=== PATIENT | female | born 1990 | race African-American/Black ===

== ENCOUNTER 2016-11-09 11:55 | Emergency (ER) | payer OTHER ==
[~2016-11-09 11:55] MED LIST: BACI28.4 TP
[2016-11-09 11:57] VITALS: BP 124/83; PULSE 80; RESP 20
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
[2016-11-09 12:15] VITALS: BP 138/80; PULSE 62; RESP 11; O2SAT 100
[2016-11-09] MEDS ORDERED: ASPI-973 PO (12:19)
[2016-11-09] MEDS ORDERED: MULT1CAP33 PO (12:19)
[2016-11-09 15:42] VITALS: BP 117/76; PULSE 78; RESP 16
== END 2016-11-09 15:43 | disposition home or self-care (01) ==
LOC: EDUNIT# 11:55 → EDBD 11:55 → SED 11:55
DX: F15.20 Other stimulant dependence, uncomplicated (principal); R51 Headache; W50.0XXA Accidental hit or strike by another person, initial encounter; Y92.241 Library as the place of occurrence of the external cause; Y93.9 Activity, unspecified; Y99.8 Other external cause status; B20 Human immunodeficiency virus [HIV] disease; E11.9 Type 2 diabetes mellitus without complications; F17.200 Nicotine dependence, unspecified, uncomplicated; Z86.19 Personal history of other infectious and parasitic diseases; Y92.9 Unspecified place or not applicable; Z79.82 Long term (current) use of aspirin

== ENCOUNTER 2016-11-14 12:43 | Emergency (ER) | payer OTHER ==
[~2016-11-14 12:43] MED LIST changes: +ASPI-973 PO; -BACI28.4 TP; +MULT1CAP33 PO
[2016-11-14 13:03] VITALS: BP 115/77; PULSE 87; RESP 16; O2SAT 100
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
[2016-11-14 15:52] VITALS: BP 102/65; PULSE 76; RESP 12; O2SAT 98
== END 2016-11-14 16:04 | disposition home or self-care (01) ==
LOC: EDUNIT# 12:43 → EDBD 12:43 → SED 12:43
DX: T40.601A Poisoning by unspecified narcotics, accidental (unintentional), initial encounter (principal); S00.93XA Contusion of unspecified part of head, initial encounter; W18.30XA Fall on same level, unspecified, initial encounter; Y93.89 Activity, other specified; Y92.199 Unspecified place in other specified residential institution as the place of occurrence of the external cause; Y99.8 Other external cause status; E11.9 Type 2 diabetes mellitus without complications; F17.200 Nicotine dependence, unspecified, uncomplicated; Z79.82 Long term (current) use of aspirin

== ENCOUNTER 2016-11-26 17:30 | Emergency (ER) | payer OTHER ==
[~2016-11-26] VITALS: Ht 162.6 cm; Wt 71.2 kg
[2016-11-26 17:52] VITALS: BP 114/82; PULSE 85; RESP 14; O2SAT 100
[2016-11-26 18:34] LABS: Mean Corpuscular Hemoglobin 24.7 pg (27.0-35.0)
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
[2016-11-27 00:08] VITALS: BP 95/59; PULSE 68; RESP 16; O2SAT 98
[2016-11-27 05:05] VITALS: BP 100/60; PULSE 75; RESP 16; O2SAT 97
[2016-11-27 09:40] VITALS: BP 115/70; PULSE 78; RESP 12; O2SAT 98
[2016-11-27 11:05] VITALS: BP 115/70; PULSE 78; RESP 12; O2SAT 98
== END 2016-11-27 11:06 | disposition home or self-care (01) ==
LOC: SED 17:30
DX: T39.1X2A Poisoning by 4-Aminophenol derivatives, intentional self-harm, initial encounter (principal); Y93.89 Activity, other specified; Y92.89 Other specified places as the place of occurrence of the external cause; Y99.8 Other external cause status; E11.9 Type 2 diabetes mellitus without complications; F17.200 Nicotine dependence, unspecified, uncomplicated; Z79.82 Long term (current) use of aspirin
CPT/HCPCS: 36415; 80053; 81002; 81025; 84702; 85027; 93005; 99284; G0480

== ENCOUNTER 2017-01-09 02:56 | Emergency (ER) | payer OTHER ==
[~2017-01-09] VITALS: Ht 160 cm; Wt 58.2 kg
--- NOTE | 2017-01-09 02:58 | ED.REPORT ---
HPI-General Illness Date of Service Jan 09, 2017 ED Provider: Dr. Maik Durán M.D. A 26 year old female with a medical history including diabetes, suicidal ideation, and polysubstance abuse presents to the ED via EMS from [facility] with left ear pain and reduced hearing onset a couple of hours ago. The patient denies inserting anything into her ear or any other symptoms. She has never had similar symptoms in the past. Nursing Notes Stated Complaint: EAR PAIN Nursing Notes Reviewed: Yes Allergies: Coded Allergies: No Known Allergies (Unverified , 10/10/16) Scheduled Amoxicillin/Clav K 875-125 mg (Augmentin 875-125 mg) 1 Each Tablet 1 TABLET PO BID Aspirin (Aspirin) 81 Mg Tablet 81 MG PO DAILY Multivitamin (Multivitamins) 1 Each Capsule 1 EACH PO DAILY General Time Seen by MD: 02:58 Chief Complaint Ear pain, Other (Reduced Hearing) Hx Obtained From: Patient Arrived By: Ambulance Sudden in Onset?: Yes Onset Occurred: 1 - 4 hours ago ("a couple") Symptom Duration: Since onset Location: : Ear left Quality: Painful Severity: Current: Moderate Severity: Maximum: Moderate Pertinent Negative: Pt denies other symptoms Pertinent Negative: Relieved by nothing Context Related History: Reports Diabetes mellitus, Reports Drug use/abuse suspected, Reports Psychiatric history Recent Healthcare: No recent doctor visit Similar Sx Previous: No Past Medical History Past Medical History Diabetes Suicidal ideation "Stomach Ulcer" per patient: HIV, herpes, multiple other STD's, anxiety, "heart issue" Past Surgical History none reported Smoking History Current Every Day Smoker Social History Pt resides in [place]. Alcohol Use: Denies alcohol use Drug Use: Cocaine, Meth, THC, Other Ambulatory Status Independent Review of Systems Full Review of Systems Constitutional: Denies: Fever Ears / Nose / Throat: Reports: Earache left, Hearing loss left Respiratory: Denies: Non-productive cough, Shortness of breath GI: Denies: Vomiting Complete sys rev & neg: except as marked. Physical Exam Vital Signs Vital Signs Date Time Temp Pulse Resp B/P Pulse Ox O2 Delivery O2 Flow Rate FiO2 01/09/17 03:48 37.1 98 16 136/78 98 Room Air 01/09/17 03:33 36.2 78 16 109/68 100 Room Air Initial VS: Reviewed Head / Eyes: Atraumatic, Normocephalic Neck: Supple, Full range of motion Skin: Warm, Dry Neurologic: Alert, Oriented, Nonfocal Psychiatric: Mood/affect normal, Behavior normal, Normal thought content General/Constitutional: Awake, Alert, No acute distress Appears to be moderately intoxicated with methamphetamine ENT: Airway patent, Mucous membranes moist Waxy white material in left ear appears to be purulent wax Re-Eval/Medical Decision Med Decision/Clinical Course 26-year-old with history of methamphetamine abuse [facility] with [facility]. She presented purulent material in the canal and apparently otitis externa and probably otitis media. She denies inserting any meds or foreign material in her ear. The opposite ear is normal. Begun with Cortisporin otic solution, and Augmentin. She is requesting placement at crisis, but they have no bed until tomorrow. She will call daily as needed. Source of Hx: Old records Time of Eval: 03:14 Patient Status: Condition improved Re-Evaluation/Progress Note: Discussed with patient diagnosis and plan for discharge. Follow-up and return to the ER instructions given. Patient agrees with plan for care and all questions were addressed. Counseled Regarding: Diagnosis, Need for follow-up, When/why to return to ED Discharge & Departure Primary Impression: Otalgia Laterality: left Qualified Code: H92.02 - Otalgia, left ear Additional Impressions: Foreign body in ear Encounter type: initial encounter Laterality: left Qualified Code: T16.2XXA - Foreign body in left ear, initial encounter Otitis externa Otitis externa type: unspecified type Laterality: left Chronicity: acute Qualified Code: H60.502 - Unspecified acute noninfective otitis externa, left ear Otitis media Otitis media type: suppurative Laterality: left Chronicity: acute Recurrence: not specified Spontaneous tympanic membrane rupture: without spontaneous rupture Qualified Code: H66.002 - Acute suppurative otitis media without spontaneous rupture of ear drum, left ear Methamphetamine abuse Disposition: Home Discharge Condition All VS Reviewed: Yes Condition: Improved Patient Instructions: Otitis Externa (ED), Otitis Media (ED) Additional Instructions: Augmentin twice daily Cortisporin Four drops in left ear four times daily for a week. Follow-up with your doctor or at residency clinic if needed. Referrals: NOPCP (PCP) [facility] Scribe Attestation Portions of this note were transcribed by Anju Oneal. I, Dr. Durán, personally performed the history, physical exam, and medical decision-making; I reviewed and confirmed the accuracy of the information in the transcribed note. Signed by: Grace Santoyo, 01/09/2017, 05:05 copies to: [facility] Maik Durán MD Jan 09, 2017 02:58 ANJU ONEAL Jan 09, 2017 03:14
[2017-01-09] MEDS ORDERED: Neomycin-Polymyxin-HC 10 mL Otic Solution LEFT_EAR ONE (03:05)
[2017-01-09] MEDS ORDERED: AMOX-366 PO (03:15)
[2017-01-09 03:33] VITALS: BP 109/68; PULSE 78; RESP 16; O2SAT 100
[2017-01-09] MEDS ORDERED: Neomycin-Polymyxin-HC 10 mL Otic Solution LEFT_EAR SCH ×2 (03:45→06:30)
[2017-01-09 03:48] VITALS: BP 136/78; PULSE 98; RESP 16; O2SAT 98
== END 2017-01-09 03:56 | disposition home or self-care (01) ==
LOC: SED 02:56
DX: T16.2XXA Foreign body in left ear, initial encounter (principal); H60.502 Unspecified acute noninfective otitis externa, left ear; H66.002 Acute suppurative otitis media without spontaneous rupture of ear drum, left ear; F15.10 Other stimulant abuse, uncomplicated; E11.9 Type 2 diabetes mellitus without complications; F17.200 Nicotine dependence, unspecified, uncomplicated; F12.10 Cannabis abuse, uncomplicated; X58.XXXA Exposure to other specified factors, initial encounter; Y92.89 Other specified places as the place of occurrence of the external cause; Y93.89 Activity, other specified; Y99.8 Other external cause status

== ENCOUNTER 2017-01-15 15:31 | Emergency (ER) | payer OTHER ==
[~2017-01-15] VITALS: Ht 161.9 cm; Wt 59.1 kg
[~2017-01-15 15:31] MED LIST changes: +AMOX-366 PO
[2017-01-15 15:41] VITALS: BP 116/68; RESP 16; O2SAT 100
[2017-01-15 17:51] VITALS: BP 116/70; PULSE 86; RESP 16; O2SAT 100
--- NOTE | 2017-01-15 17:55 | ED.REPORT ---
HPI-Ear Pain/Problem/FB Date of Service Jan 15, 2017 ED Provider: Raleigh Martinez DO Pt is a 26 y.o. female with an extensive medical hx including recurrent otitis media who presents to the ED c/o left ear pain. Pt states that she was recently dx with left otitis media and was given a prescription which got wet so she was unable to fill it. She states that her only concern right now is her left ear pain. She does state that she will soon be going to [facility] and reports that she has her DM controlled. Pt denies fever, chills, nausea, vomiting, and diarrhea. Nursing Notes Stated Complaint: EAR PAIN Chief Complaint: ENT & Mouth Nursing Notes Reviewed: Yes Allergies: Coded Allergies: No Known Allergies (Unverified , 10/10/16) No Active Prescriptions or Reported Meds General Time Seen by MD: 17:50 Chief Complaint Ear problem left Hx Obtained From: Patient Arrived By: Walk-in Onset Occurred: Onset unknown Location: : Inner ear Quality: Itching Severity: Current: Severe Past Medical History Past Medical History Diabetes Suicidal ideation "Stomach Ulcer" per patient: HIV, herpes, multiple other STD's, anxiety, "heart issue" Past Surgical History none reported Smoking History Current Every Day Smoker Social History Pt resides in [place]. Alcohol Use: Denies alcohol use Drug Use: Cocaine, Meth, THC, Other Ambulatory Status Independent Review of Systems Constitutional: Denies: Chills, Fever Ears / Nose / Throat: Reports: Earache left Complete sys rev & neg: except as marked. Additional Review of Systems GI: Denies: Diarrhea, Nausea, Vomiting Physical Exam Initial Vital Signs Vital Signs (First) Date Time Temp Pulse Resp B/P Pulse Ox O2 Delivery O2 Flow Rate FiO2 01/15/17 15:41 37.2 95 16 116/68 100 Room Air Initial VS: Reviewed Head / Eyes: Atraumatic, Normocephalic Respiratory: Breath sounds normal, No respiratory distress Cardiovascular: Regular rate & rhythm, Intact distal pulses Abdomen / GI: No distention Skin: Warm, Dry, No cyanosis Psychiatric: Mood/affect normal, Behavior normal, Normal thought content General/Constitutional: Awake, Alert, Well developed, Well hydrated, Well nourished, Not toxic appearing ENT: Atraumatic, Airway patent Left Ear / Mastoid: Positive: External canal red, Tympanic membrane bulging, Tympanic membrane red (dull) Neurologic: Oriented X3, Speech NL, CN II - XII intact Re-Eval/Medical Decision Source of Hx: Old records Counseled Regarding: Diagnosis Discharge & Departure Primary Impression: Otitis externa Otitis externa type: other infective Laterality: left Chronicity: acute Qualified Code: H60.392 - Other infective otitis externa, left ear Additional Impression: Otitis media Otitis media type: suppurative Laterality: left Chronicity: acute Recurrence: not specified Spontaneous tympanic membrane rupture: without spontaneous rupture Qualified Code: H66.002 - Acute suppurative otitis media without spontaneous rupture of ear drum, left ear Disposition: Home Discharge Condition All VS Reviewed: Yes Condition: Improved Patient Instructions: Otitis Media (ED), Otitis Externa (ED) Additional Instructions: Put 10 drops of the Cipro otic in your left ear twice daily for 7 days. Take Augmentin twice daily for 10 days. Call the residency clinic for a urgent follow up. I would like you to be seen to discuss your chronic medical problems. . I also agree with you checking into [facility] [place]. Staying drug-free is probably the most important thing you can do for your health. Keep a good close eye on your blood sugar. Use your insulin as directed. Return if any problems or any worsening symptoms. Call Dr. clark our ear nose and throat surgeon to have her your ear rechecked early part of next week. If you notice any pus draining from your ear then come back to the emergency department. Referrals: NOPCP (PCP) Param Clark MD [facility] Scribe Attestation Portions of this note were transcribed by Robin Lin. I, Dr. Matrinez personally performed the history, physical exam and medical decision-making; I reviewed and confirmed the accuracy of the information in the transcribed note. Signed by : Grace Garcia, 01/15/17 and 1853. copies to: Param Clark MD, Todd P DO Jan 15, 2017 17:55 ROBIN LIN Jan 15, 2017 18:16
== END 2017-01-15 18:14 | disposition home or self-care (01) ==
LOC: EDBD 15:31 → SED 15:31 → EDUNIT# 15:31 → SED 18:14
DX: H60.392 Other infective otitis externa, left ear (principal); H66.002 Acute suppurative otitis media without spontaneous rupture of ear drum, left ear; E11.9 Type 2 diabetes mellitus without complications; F17.200 Nicotine dependence, unspecified, uncomplicated

== ENCOUNTER 2017-01-26 19:54 | Emergency (ER) | payer OTHER ==
[~2017-01-26] VITALS: Ht 161.9 cm; Wt 65.0 kg
[2017-01-26 20:20] VITALS: BP 107/61; PULSE 113; RESP 16; O2SAT 99
--- NOTE | 2017-01-26 20:52 | ED.REPORT ---
HPI-Ear Pain/Problem/FB Date of Service Jan 26, 2017 ED Provider: Kaushik Andrews MD A 26 year old homeless female with an extensive medical history including diabetes and recurrent otitis media presents to the ED via EMS with bilateral ear pain onset 2 weeks ago. The pain began in her left ear and has spread to her right. The patient also reports hearing loss in her left ear, nasal congestion, and bilateral foot pain. She denies other symptoms. The patient was seen in the ED on 01/15/17 with similar symptoms and was placed on antibiotics with no relief. Nursing Notes Stated Complaint: RT EAR PAIN Chief Complaint: General Complaint Nursing Notes Reviewed: Yes Allergies: Coded Allergies: Penicillins (Verified Allergy, Unknown, 01/26/17) diphenhydramine (Verified Allergy, Unknown, 01/26/17) No Active Prescriptions or Reported Meds General Time Seen by MD: 20:51 Chief Complaint Ear problem bilateral, Pain Hx Obtained From: Patient Arrived By: Ambulance Onset Occurred: More than a week ago... (2 weeks) Symptom Duration: Since onset Location: : Ear canal: Inner ear Quality: Painful Severity: Current: Moderate Severity: Maximum: Moderate Associated with: Reports: Hearing loss Pertinent Negative: Relieved by nothing Recent Healthcare: Recent doctor visit Similar Sx Previous: Yes Past Medical History Past Medical History Diabetes Suicidal ideation "Stomach Ulcer" Recurrent otitis media per patient: HIV, herpes, multiple other STD's, anxiety, "heart issue" Past Surgical History none reported Smoking History Current Every Day Smoker Social History Pt resides in [place]. Alcohol Use: Denies alcohol use Drug Use: Cocaine, Meth, THC, Other Other Social History: Homeless Ambulatory Status Independent Review of Systems Constitutional: Denies: Fever Ears / Nose / Throat: Reports: Earache bilateral, Hearing loss left, Nasal congestion Complete sys rev & neg: except as marked. Additional Review of Systems Respiratory: Denies: Non-productive cough, Shortness of breath GI: Denies: Diarrhea, Vomiting Musculoskeletal: Reports: Extremity pain (Bilateral feet) Physical Exam Initial Vital Signs Vital Signs (First) Date Time Temp Pulse Resp B/P Pulse Ox O2 Delivery O2 Flow Rate FiO2 01/26/17 20:20 37.1 113 16 107/61 99 Room Air Initial VS: Reviewed, Vital signs abnormal Head / Eyes: Atraumatic, Normocephalic Respiratory: Breath sounds normal, Clear to auscultation, No respiratory distress Cardiovascular: Regular rate & rhythm, Heart sounds normal Neurologic: Alert, Oriented, Nonfocal Psychiatric: Mood/affect normal, Behavior normal, Normal thought content General/Constitutional: Awake, Alert, No acute distress Exhibits extraneous movements ENT: Airway patent Right Ear / Mastoid: Positive: Tympanic memb retracted Left Ear / Mastoid: Positive: Ext canal cerumen impact Right TM dull Interpretation & Diagnostics Lab Results Interpretation Lab Results Interpretation: Bedside Urine Drug Screen positive for amphetamines and opiates. Re-Eval/Medical Decision Med Decision/Clinical Course 46-year-old patient presents with left ear pain. She has a loose cerumen impaction in that ear. There is no otitis externa. That right TM was not well visualized. The left TM appears retracted. She left after examination but before treatment. I doubt serious illness at this time. Drug screen is positive for amphetamines and opiates. Source of Hx: Old records Re-Evaluation/Progress : Time of Eval: 21:29 Patient Status: Condition improved Re-Evaluation/Progress Note: Patient has left AMA Discharge & Departure Primary Impression: Left ear impacted cerumen Additional Impressions: Methamphetamine abuse Heroin abuse Disposition: AGAINST MEDICAL ADVICE Discharge Condition All VS Reviewed: Yes Condition: Improved Referrals: NOPCP (PCP) Scribe Attestation Portions of this note were transcribed by Anju Oneal. I, Dr. Andrews, personally performed the history, physical exam, and medical decision-making; I reviewed and confirmed the accuracy of the information in the transcribed note. Signed by: Grace Santoyo, 01/26/2017, 21:35 Kaushik Andrews MD Jan 26, 2017 20:52 ANJU ONEAL Jan 26, 2017 21:00
== END 2017-01-26 21:18 | disposition left against medical advice (07) ==
LOC: SED 19:54 → EDBD 19:54 → SED 21:18
DX: H61.22 Impacted cerumen, left ear (principal); F15.10 Other stimulant abuse, uncomplicated; F11.10 Opioid abuse, uncomplicated; E11.9 Type 2 diabetes mellitus without complications; F17.200 Nicotine dependence, unspecified, uncomplicated; Z59.0 Homelessness; Z88.0 Allergy status to penicillin; Z88.8 Allergy status to other drugs, medicaments and biological substances

== ENCOUNTER 2017-02-02 08:45 | Emergency (ER) | payer OTHER ==
[~2017-02-02] VITALS: Ht 160 cm; Wt 65.0 kg
[2017-02-02 08:48] VITALS: BP 124/85; RESP 18; O2SAT 100
--- NOTE | 2017-02-02 08:59 | ED.REPORT ---
HPI-Ear Pain/Problem/FB Date of Service Feb 02, 2017 ED Provider: Doc,Ed MD The patient is a 26 year old female with history of recurrent otitis media and diabetes mellitus, who presents to the emergency department complaining of bilateral ear pain that began several weeks ago. She also reports chills. She denies fever. She has had similar symptoms in the past and has been treated with ear drops. She is currently homeless. Nursing Notes Stated Complaint: MEDICATION REFILL Chief Complaint: ENT & Mouth Nursing Notes Reviewed: Yes Allergies: Coded Allergies: Penicillins (Verified Allergy, Unknown, 01/26/17) diphenhydramine (Verified Allergy, Unknown, 01/26/17) No Active Prescriptions or Reported Meds General Time Seen by MD: 08:58 Chief Complaint Ear problem bilateral, Pain Hx Obtained From: Patient Arrived By: Walk-in Past Medical History Past Medical History Diabetes mellitus Hx of suicidal ideation "Stomach Ulcer" Recurrent otitis media per patient: HIV, herpes, multiple other STD's, anxiety, "heart issue" Past Surgical History none reported Family History Noncontributory Smoking History Current Every Day Smoker Social History Pt resides in [place]. Alcohol Use: Denies alcohol use Drug Use: Cocaine, Meth, THC, Other Other Social History: Homeless Ambulatory Status Independent Review of Systems Constitutional: Reports: Chills, Denies: Fever Ears / Nose / Throat: Reports: Earache bilateral Complete sys rev & neg: except as marked. Physical Exam Initial Vital Signs Vital Signs (First) Date Time Temp Pulse Resp B/P Pulse Ox O2 Delivery O2 Flow Rate FiO2 02/02/17 08:48 36.0 114 18 124/85 100 Initial VS: Reviewed Head / Eyes: Atraumatic, Normocephalic, PERRL Neck: Supple, Non-tender, Full range of motion Respiratory: No respiratory distress Lymphatic: No lymphadenopathy Extremities: Vascular intact, Neuro intact, No swelling, No tenderness Skin: Warm, Dry, No cyanosis Neurologic: Alert, Oriented, Nonfocal Psychiatric: Mood/affect normal, Behavior normal, Normal thought content General/Constitutional: Awake, Alert, Cooperative ENT: Airway patent Right Ear / Mastoid: Negative: Ext canal cerumen impact, External canal red, Fluid behind TM purulent, Mastoid area red, Mastoid area tender, Tympanic membrane bulging, Tympanic membrane red Left Ear / Mastoid: Positive: Ext canal cerumen impact, External canal red, Negative: Fluid behind TM purulent, Mastoid area red, Mastoid area tender, Tympanic membrane bulging, Tympanic membrane red No pain with manipulation of the auricle. Re-Eval/Medical Decision Source of Hx: Old records Re-Evaluation/Progress #1: Time of Eval: 09:05 Re-Evaluation/Progress Note: Discussed exam findings and plan. Re-Evaluation/Progress #2: Time of Eval: 09:21 Re-Evaluation/Progress Note: Rechecked the patient. The nurse was able to remove the cerumen. Her left TM is not infected. Discussed plan for discharge. All questions were addressed. Counseled Regarding: Diagnosis, Need for follow-up, When/why to return to ED Discharge & Departure Primary Impression: Left ear impacted cerumen Additional Impression: Otitis externa Otitis externa type: unspecified type Laterality: left Chronicity: acute Qualified Code: H60.502 - Unspecified acute noninfective otitis externa, left ear Disposition: Home Discharge Condition All VS Reviewed: Yes Condition: Stable Patient Instructions: Cerumen Impaction (ED) Additional Instructions: Use eardrops as prescribed. Follow-up with her regular doctor. Return to the ER as needed for any emergencies. Referrals: NOPCP (PCP) Scribe Attestation Portions of this note were transcribed by Narda Rodas. IDr. Rose personally performed the history, physical exam and medical decision-making; I reviewed and confirmed the accuracy of the information in the transcribed note. Signed by: Grace Quintanilla, 02/02/2017 at 0930. Virgil Rose DO Feb 02, 2017 08:59 Narda Rdoas Feb 02, 2017 09:07
== END 2017-02-02 09:20 | disposition home or self-care (01) ==
LOC: SED 08:45
DX: H61.22 Impacted cerumen, left ear (principal); H60.502 Unspecified acute noninfective otitis externa, left ear; E11.9 Type 2 diabetes mellitus without complications; F17.200 Nicotine dependence, unspecified, uncomplicated; Z59.0 Homelessness; Z88.0 Allergy status to penicillin; Z88.8 Allergy status to other drugs, medicaments and biological substances

== ENCOUNTER 2017-02-17 03:01 | Emergency (ER) | payer OTHER ==
[~2017-02-17] VITALS: Ht 160 cm; Wt 63.8 kg
[2017-02-17 03:08] VITALS: BP 127/78; PULSE 109; RESP 22; O2SAT 99
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
[2017-02-17] MEDS ORDERED: 0.9% Sodium Chloride 1,000 ML IV ONE (03:24)
[2017-02-17] MEDS ORDERED: Ondansetron 2 mg/mL 2 mL Inj IV PRN (03:25)
== END 2017-02-17 04:39 | disposition home or self-care (01) ==
LOC: SED 03:01 → MERGE 03:01 → SED 04:39
DX: F15.20 Other stimulant dependence, uncomplicated (principal); F17.200 Nicotine dependence, unspecified, uncomplicated

== ENCOUNTER 2017-08-03 06:37 | Emergency (ER) | payer MEDICAID, OTHER ==
[~2017-08-03] VITALS: Ht 160 cm; Wt 79.5 kg
[2017-08-03 06:48] VITALS: BP 125/80; PULSE 122; RESP 18; O2SAT 98
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
[2017-08-03] MEDS ORDERED: SULF1TAB7 PO (07:33)
== END 2017-08-03 07:45 | disposition home or self-care (01) ==
LOC: SED 06:37
DX: L03.113 Cellulitis of right upper limb (principal); R05 Cough; E11.9 Type 2 diabetes mellitus without complications; F17.200 Nicotine dependence, unspecified, uncomplicated; Z59.0 Homelessness